=== PATIENT | female | born 1980 | race African-American/Black ===

== ENCOUNTER 2017-01-20 09:54 | Emergency (ER) | payer OTHER, MEDICAID ==
[~2017-01-20 09:54] MED LIST: DERMOPLAST SPRA56 GM TP; LAN-O-SOOTHE7 GM TP; MOTRIN-DPS800 MG PO; TYLENOL #3 DPS1 TAB PO
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
== END 2017-01-20 10:50 | disposition home or self-care (01) ==
LOC: ER 09:54
DX: S46.912A Strain of unspecified muscle, fascia and tendon at shoulder and upper arm level, left arm, initial encounter (principal); S16.1XXA Strain of muscle, fascia and tendon at neck level, initial encounter; V49.9XXA Car occupant (driver) (passenger) injured in unspecified traffic accident, initial encounter

== ENCOUNTER 2017-03-18 15:45 | Emergency (ER) | payer MEDICAID ==
--- NOTE | 2017-03-19 13:58 | ER ---
ADMIT: 03/18/2017 RM/LOC: ER [facility] MR#: [id number] [id number] [place], [place] [address] RONA VAZQUEZ [address] [address] Emergency Room Report SEX: F AGE: 36 : 1980 DATE: 03/18/2017 CHIEF COMPLAINT: Toothache. HISTORY OF PRESENT ILLNESS: A 36-year-old black female, who presents with 2-3 weeks of dental pain. States she was in to see Dr. Han 2 weeks ago for the same complaint and was started on amoxicillin, naproxen as well as Flexeril. She states she is 2 months . Returns today as she continues to have pain despite therapy. Worse with heat, cold, and chewing. Denies any fever, chills, sore throat, difficulty swallowing. States she has been taking the naproxen as prescribed. Denies any headache, nausea, vomiting, stiff neck. COURSE IN THE EMERGENCY ROOM: The patient was seen and examined. GENERAL: Afebrile and nontoxic. No acute distress. HEENT AND NECK: Head is normocephalic and atraumatic. Trachea midline. No lymphadenopathy. She has a full range of motion about the neck. No meningismus. Mouth, throat, lips, and gums normal. Pharynx non erythematous. She does have multiple dental caries on the molars bilaterally. No obvious abscess. I did offer her dental nerve block today, performed for pain relief. I did have a long discussion with her that she needs to make an appointment with a dentist as her pain will not resolve without dental intervention. We will fill script for short-term pain medications. Told her if she continues to have pain, she needs to follow up with Dr. Han for management. IMPRESSION: Dental caries. DISPOSITION: The patient was given a script for [place] 5/325, 1-2 tabs every 4- 6 hours p.r.n. pain #12. I did caution her using naproxen and Motrin during , she is not to drive while taking narcotics, not to double up on the Tylenol. Make appointment with a dentist for further management. Follow up with Dr. Han if pain persists. Questions sought and answered to best of may ability and the patient's satisfaction. Discharged in stable condition. MICHELLE Adamson / Donnie Uribe MD / fany JOB #: [id number] CC: Donnie Uribe MD, Attending Physician Iwona Han MD, Family Physician
== END 2017-03-18 17:25 | disposition home or self-care (01) ==
LOC: ER 15:45
PROC: 3E0T3BZ Introduction of Anesthetic Agent into Peripheral Nerves and Plexi, Percutaneous Approach (ICD-10-PCS; principal; 2017-03-18)
DX: K02.9 Dental caries, unspecified (principal)